=== PATIENT | male | born 1985 | race Caucasian/White ===

== ENCOUNTER 2018-08-26 10:55 | Emergency (ER) | payer OTHER ==
[~2018-08-26] VITALS: Ht 175.3 cm; Wt 88.6 kg
[~2018-08-26 10:55] MED LIST: CEPHALEXIN500 M1 PO; NO HOME MEDICATIONS
[2018-08-26 11:02] VITALS: BP 121/77; TEMP 98.1
[2018-08-26] MEDS ORDERED: DOXYCYCLINE 10100 MG PO (11:34)
[2018-08-26 11:50] VITALS: PULSE 80
== END 2018-08-26 11:50 | disposition home or self-care (01) ==
LOC: COL.ER 10:55
DX: L02.414 Cutaneous abscess of left upper limb (principal)